=== PATIENT | female | born 1975 | race Caucasian/White ===

== ENCOUNTER 2016-09-03 01:33 | Emergency (ER) | payer MEDICARE ==
[2016-09-03 01:55] LABS: HEMOGLOBIN 13.2 gm/dl (12.3-15.3); RED BLOOD COUNT 4.1 M/UL (4.00-5.10); WHITE BLOOD COUNT 14.7 K/UL (4.5-11.0)
[2016-09-03 03:17] LABS: BUN/CREATININE RATIO 15 (0-10)
== END 2016-09-03 03:30 | disposition expired ==
LOC: ER1 01:33
PROVIDERS: Family Medicine
DX: I46.9 Cardiac arrest, cause unspecified (principal); F20.9 Schizophrenia, unspecified
CPT/HCPCS: 31500; 36415; 36600; 80053; 80307; 81001; 82550; 82553; 82803; 83874; 84484; 85025; 87086; 92950; 96374; 96375; 96376; 99285; J0171; J0282; J1250